=== PATIENT | female | born 1980 | race African-American/Black ===

== ENCOUNTER 2021-07-05 13:38 | Emergency (ER) | payer OTHER, SELFPAY ==
--- NOTE | ~2021-07-05 | CT_ITS ---
EXAMINATION: CT CERVICAL SPINE WITHOUT CONTRAST CLINICAL INFORMATION: Left arm numbness COMPARISON: None TECHNIQUE: Axial images through the cervical spine without contrast. Sagittal and coronal reconstructions on the technologist workstation were performed. This CT examination was performed using dose optimization techniques as appropriate, variously including the following: *Automated exposure control *Adjustment of mA and/or kV according to patient size (this includes techniques or standardized protocols for targeted exams where dose is matched to indication/reason for exam; i.e. extremities or head) *Use of iterative reconstruction technique DLP: 543 mGy-cm FINDINGS: Bone alignment is normal. No fracture or dislocation is seen. There is degenerative spondylosis and degenerative disc disease at C4-C5, C5-C6 and C6-C7. At C2-C3 there is no disc herniation. Spinal canal, lateral recesses and neural foramen are patent. At C3-C4 there is a small central disc herniation. Lateral recesses and neural foramen are patent. At C4-C5 there is mild disc bulge. No disc herniation. Spinal canal, lateral recesses and neural foramen are patent. At C 5/6 there is left paracentral disc and bony osteophyte complex. There is narrowing of the left lateral recess and neuroforamen from disc osteophyte complex. At C6-C7 there is left paracentral disc bulge. Spinal canal, lateral recesses and neural foramen are patent. At C7-T1 there is no disc herniation. Spinal canal, lateral recesses and neural foramen are patent. The paraspinal soft tissues are normal. Visualized lung apices are clear. CT/CT cervical spine wo con IMPRESSION: Small central disc herniation at C3-C4. Disc bulge at C4-C5. Left paracentral disc and bony osteophyte complex at C5-C6 and narrowing of the left lateral recess and neuroforamen. Left paracentral disc bulge at C6-C7. Fleischner guidelines were followed.
--- NOTE | ~2021-07-05 | CT_ITS ---
EXAMINATION: CT HEAD WITHOUT CONTRAST CLINICAL INFORMATION: Left arm numbness COMPARISON: None TECHNIQUE: Contiguous axial imaging was performed from the skull base to vertex without intravenous administration of contrast. This CT examination was performed using dose optimization techniques as appropriate, variously including the following: *Automated exposure control *Adjustment of mA and/or kV according to patient size (this includes techniques or standardized protocols for targeted exams where dose is matched to indication/reason for exam; i.e. extremities or head) *Use of iterative reconstruction technique DLP: 837 mGy-cm FINDINGS: There is no evidence of acute intracranial hemorrhage or territorial infarction. No abnormal mass effect or midline shift is seen. Anders to white matter differentiation is well preserved. No extra-axial fluid collections are identified. The ventricles are normal in size. There is no abnormal attenuation within the brain parenchyma. The osseous structures and soft tissues are normal. The mastoid air cells and visualized portions of the paranasal sinuses are well aerated. CT/CT head/brain wo con IMPRESSION: Unremarkable exam.
[2021-07-05 14:10] VITALS: BP 147/83; PULSE 82; RESP 16; TEMP 37.5; O2SAT 100; BMI 32.4
--- NOTE | 2021-07-05 14:52 | ED_ITS ---
HPI - Extremity Problem General Chief complaint: Extremity Injury, Upper Stated complaint: L arm numbness/L side facial numbness Time Seen by Provider: 07/05/21 14:51 Source: patient Mode of arrival: ambulatory Limitations: no limitations History of Present Illness HPI Narrative: 40 y/o female with significant medical history presents to the ER with 3 weeks of left-sided arm numbness, left some numbness and neck pain for the last about 3 weeks after she slept funny. She states always sleeping on her left side with her arm curls and underneath her. She woke up 1 morning with decreased sensation of the dorsal aspect of the left upper extremity, started off as the left upper arm and is now extended to the left forearm, all on the dorsal aspect. She also reports some numbness and cool sensation of the left thumb. She denies any weakness. She can feel when she touches the arm but it just feels different than you touch the right. She denies any changes in her left leg. She denies any headache. She reports intermittent twitching of her left cheek that she just noticed in the last week and a half for so. She is concerned she may be having a stroke. MD Complaint: extremity pain and other (left arm numbness) Onset (ago): week(s) (3) Pain Consistency: constant Location: left and upper extremity Quality: constant and other (Numbness) Radiation: distal Relieving factors: nothing Exacerbating factors: nothing Associated symptoms: denies other symptoms Related Data Previous Rx's Medication Instructions Recorded naproxen 500 mg tablet 500 mg PO BID PRN #20 tab 07/05/21 Allergies Allergy/AdvReac Type Severity Reaction Status Date / Time Unable to Assess Allergy Unverified 07/05/21 15:00 Review of Systems Review of Systems: Constitutional: No Fever, No Chills ENT/Mouth: No sore throat, No Rhinorrhea, No Swallowing Difficulty Eyes: No Eye Pain, No Swelling, No Redness, No vision changes Cardiovascular: No Chest Pain, No SOB, No Orthopnea, No Edema Respiratory: No Cough, No Sputum, No Wheezing, No dyspnea Gastrointestinal: No Nausea, No Vomiting, No Diarrhea, No abdominal Pain Genitourinary: No Dysuria, No Urinary Frequency, No Hematuria Musculoskeletal: No joint pain, No Myalgias, +facial twitching Skin: No Skin Lesions, No rash Neuro: No Weakness, + Numbness, No Dizziness, No Headache Psych: + Anxiety/Panic, No Depression Heme/Lymph: No Bruising, No Lymphadenopathy Endocrine: No Polyuria, No Polydipsia [facility] Past Medical History Surgical History (Updated 07/05/21 @ 14:14 by Valarie Alegria) History of cholecystectomy Social History Social History Advance Directives: No Advance Directives Information Provided: No Physical Exam Vital Signs: Vital Signs: Last Vital Signs Temp 99.5 F 07/05/21 14:10 Pulse 82 07/05/21 14:10 Resp 16 07/05/21 14:10 BP 147/83 H 07/05/21 14:10 Pulse Ox 100 07/05/21 14:10 BMI result Body Mass Index 32.4 Appearance: Alert. Oriented X3. No acute distress. Eyes: Pupils equal, round and reactive to light. ENT: Pharynx normal. Neck: Normal inspection. Neck supple. CVS: Normal heart rate and rhythm. Pulses normal. Respiratory: No respiratory distress. Breath sounds normal. Abdomen: Soft and nontender. +BS x4 Skin: Skin warm and dry. Normal skin color. Normal skin turgor. No rashes. Extremities: No lower extremity edema. Neuro: Oriented X 3. No motor deficit. Strength equal and symmetrical throughout. Subjective sensory deficit of the entire dorsal left upper extremity and left thumb with normal range of motion, normal strength. Cranial nerves 2- 12 intact, normal speech, no facial droop. Course Course Course Narrative: 40-year-old healthy female presenting to the ER with 3 weeks of decreased sensation in the left upper extremity. This started after she slept wrong. She also reports some neck discomfort. Denies trauma. No weakness on examination but she does have some subjective sensory deficits. Most likely cervical radi culopathy. Will get CT scan of head and neck for further evaluation. Will also check a complete basic lab workup Reevaluation(s) Reevaluation #1: CT scans showing no acute intracranial pathology. Cervical spine showing small central disc herniation at C3-C4. Disc bulge at C4-C5. Left paracentral disc and bony osteophyte complex at C5-C6 and narrowing of the left lateral recess and neural foramen. Left paracentral disc bulge at C6-C7. Results were discussed with the patient. She is stable for discharge home with plan to follow-up with her PCP, possible neuro surgical evaluation non urgently as an outpatient. Patient agrees with plan. MDM - Extremity (Nontraumatic) Lab Data Result diagrams: 07/05/21 15:47 07/05/21 15:04 Labs: Lab Results 07/05/21 07/05/21 07/05/21 Range/Units 14:52 14:52 15:04 WBC (4.8-10.8) X10*3/uL RBC (4.20-5.50) X10*6/uL Hgb (12.0-16.0) g/dl Hct (37.0-47.0) % MCV (80.0-98.0) fL MCH (27.0-33.0) pg MCHC (31.0-35.0) g/dl RDW (11.0-16.0) % Plt Count (160-400) X10*3/uL MPV (9.4-12.3) fL Immature Gran % (Auto) (0.0-0.4) % Neut % (Auto) (45-73) % Lymph % (Auto) (20-40) % Stafford % (Auto) (2-11) % Eos % (Auto) (0-4) % Baso % (Auto) (0-2) % Lymph # (Auto) (1.2-4.9) X10*3/uL Stafford # (Auto) (0.1-1.2) X10*3/uL Eos # (Auto) (0.0-0.4) X10*3/uL Baso # (Auto) (0.0-0.2) X10*3/uL Abs Immat Gran (auto) (0.00-0.03) X10*3/uL Absolute Neuts (auto) (2.0-8.3) x10*3/uL Absolute Nucleated RBC (0.0-0.012) X10*3/uL Nucleated RBC % (auto) (0.0-0.2) /100WBC Sodium 136 (135-145) mmol/L Potassium 4.2 (3.3-5.1) mmol/L Chloride 105 (96-108) mmol/L Carbon Dioxide 20 L (22-29) mmol/L Anion Gap 15 (12-20) BUN 8 L (9-16) mg/dL Creatinine 0.72 (0.5-1.4) mg/dL Estim Creat Clear Calc 122.1 Estimated GFR > 60 Random Glucose 84 (60-115) mg/dL Calcium 9.0 (8.4-10.2) mg/dL Urine Color YELLOW Urine Appearance CLEAR Urine pH 6.0 (5.0-8.0) Ur Specific Bayard >= 1.030 H (1.005-1.025) Urine Protein NEG (NEG-TRACE) MG/DL Urine Glucose (UA) NEG (NEG) MG/DL Urine Ketones NEG (NEG) MG/DL Urine Blood NEG (NEG) Urine Nitrite NEG (NEG) Ur Leukocyte Esterase NEG (NEG) Urine Test NEGATIVE (NEGATIVE) 07/05/21 Range/Units 15:47 WBC 14.1 H (4.8-10.8) X10*3/uL RBC 4.18 L (4.20-5.50) X10*6/uL Hgb 10.6 L (12.0-16.0) g/dl Hct 33.2 L (37.0-47.0) % MCV 79.4 L (80.0-98.0) fL MCH 25.4 L (27.0-33.0) pg MCHC 31.9 (31.0-35.0) g/dl RDW 15.9 (11.0-16.0) % Plt Count 247 (160-400) X10*3/uL MPV 8.9 L (9.4-12.3) fL Immature Gran % (Auto) 0.4 (0.0-0.4) % Neut % (Auto) 63.1 (45-73) % Lymph % (Auto) 29.2 (20-40) % Stafford % (Auto) 6.5 (2-11) % Eos % (Auto) 0.4 (0-4) % Baso % (Auto) 0.4 (0-2) % Lymph # (Auto) 4.1 (1.2-4.9) X10*3/uL Stafford # (Auto) 0.9 (0.1-1.2) X10*3/uL Eos # (Auto) 0.1 (0.0-0.4) X10*3/uL Baso # (Auto) 0.1 (0.0-0.2) X10*3/uL Abs Immat Gran (auto) 0.05 H (0.00-0.03) X10*3/uL Absolute Neuts (auto) 8.9 H (2.0-8.3) x10*3/uL Absolute Nucleated RBC 0.000 (0.0-0.012) X10*3/uL Nucleated RBC % (auto) 0.0 (0.0-0.2) /100WBC Sodium (135-145) mmol/L Potassium (3.3-5.1) mmol/L Chloride (96-108) mmol/L Carbon Dioxide (22-29) mmol/L Anion Gap (12-20) BUN (9-16) mg/dL Creatinine (0.5-1.4) mg/dL Estim Creat Clear Calc Estimated GFR Random Glucose (60-115) mg/dL Calcium (8.4-10.2) mg/dL Urine Color Urine Appearance Urine pH (5.0-8.0) Ur Specific Bayard (1.005-1.025) Urine Protein (NEG-TRACE) MG/DL Urine Glucose (UA) (NEG) MG/DL Urine Ketones (NEG) MG/DL Urine Blood (NEG) Urine Nitrite (NEG) Ur Leukocyte Esterase (NEG) Urine Test (NEGATIVE) Discharge Plan Discharge Clinical Impression: Cervical radiculopathy Patient Disposition: Home, Self-Care Instructions: Cervical Radiculopathy (ED) Additional Instructions: Your CT scan showed small central disc herniation at C3-C4. Disc bulge at C4- C5. Left paracentral disc and bony osteophyte complex at C5-C6 and narrowing of the left lateral recess and neural foramen. Left paracentral disc bulge at C6- C7. Follow up with your doctor for further evaluation and treatment Recommend trial of anti-inflammatory medication - take as prescribed and take with food If you develop new or worsening symptoms call 911 or come back to the ER for further evaluation. Prescriptions: New naproxen 500 mg tablet 500 mg PO BID PRN (Reason: pain) Qty: 20 0RF Interventions: ED Discharge Assessment Last Done: 07/05/21 16:57 Discharge Date/Time: 07/05/21 17:04
[2021-07-05 15:20] LABS: Urine Pregnancy NEGATIVE (NEGATIVE)
[2021-07-05 15:21] LABS: UPreg QC Valid YES
[2021-07-05 15:24] LABS: Appearance Urine CLEAR; Color Urine YELLOW; Glucose Urine UA NEG (NEG); Leukocyte Esterase Urine NEG (NEG); Nitrite Urine NEG (NEG); Specific Gravity - Urine >= 1.030 (1.005-1.025); Urine Blood NEG (NEG); Urine Ketones NEG (NEG); Urine Protein NEG (NEG-TRACE)
[2021-07-05 15:34] LABS: Anion Gap 15 (12-20); Blood Urea Nitrogen 8 mg/dL (9-16); Carbon Dioxide 20 mmol/L (22-29); Chloride 105 mmol/L (96-108); Creatinine Clr Calc Pharmacy 122.1; Estimated Glomerular Filt Rate > 60; Glucose Random 84 mg/dL (60-115); Potassium 4.2 mmol/L (3.3-5.1); Sodium 136 mmol/L (135-145)
[2021-07-05 15:52] LABS: Basophils Absolute Auto 0.1 X10*3/uL (0.0-0.2); Basophils Percent Auto 0.4 % (0-2); Eosinophils Absolute Auto 0.1 X10*3/uL (0.0-0.4); Eosinophils Percent Auto 0.4 % (0-4); Hematocrit 33.2 % (37.0-47.0); Hemoglobin 10.6 g/dl (12.0-16.0); Imm Gran Abs Auto 0.05 X10*3/uL (0.00-0.03); Imm Gran Pct Auto 0.4 % (0.0-0.4); Lymphocytes Absolute Auto 4.1 X10*3/uL (1.2-4.9); Lymphocytes Percent Auto 29.2 % (20-40); Mean Corpuscular HGB Conc 31.9 g/dl (31.0-35.0); Mean Corpuscular Hemoglobin 25.4 pg (27.0-33.0); Mean Corpuscular Volume 79.4 fL (80.0-98.0); Mean Platelet Volume 8.9 fL (9.4-12.3); Monocytes Absolute Auto 0.9 X10*3/uL (0.1-1.2); Monocytes Percent Auto 6.5 % (2-11); Neutrophils Absolute Auto 8.9 x10*3/uL (2.0-8.3); Neutrophils Percent Auto 63.1 % (45-73); Platelet Count 247 X10*3/uL (160-400); Red Blood Count 4.18 X10*6/uL (4.20-5.50); Red Cell Distribution Width 15.9 % (11.0-16.0); White Blood Count 14.1 X10*3/uL (4.8-10.8)
[2021-07-05 15:56] LABS: MANUAL DIFF FLAG NO
== END 2021-07-05 17:04 | disposition home or self-care (01) ==
PROVIDERS: Emergency Provider Emergency Medicine; PCP Family Medicine
DX: M54.12 Radiculopathy, cervical region (principal); Z79.899 Other long term (current) drug therapy
CPT/HCPCS: 36415; 70450; 72125; 80048; 81003; 81025; 85025; 99283; 99284